=== PATIENT | male | born 1955 | race Caucasian/White ===

== ENCOUNTER 2019-08-13 13:21 | Emergency (ER) | payer OTHER ==
[~2019-08-13] VITALS: Ht 182.9 cm; Wt 106.6 kg
[2019-08-13] MEDS ORDERED: GLIMEPIRIDE1 MG PO (13:43)
[2019-08-13] MEDS ORDERED: OZEMPIC0.25 MG/0. SQ (13:43)
[2019-08-13] MEDS ORDERED: OMEPRAZOLE 20 M20 M1 PO (13:43)
[2019-08-13] MEDS ORDERED: LISINOPRIL2.5 MG PO (13:43)
[2019-08-13] MEDS ORDERED: KEFLEX500 M1 PO (16:00)
[2019-08-13 16:17] VITALS: BP 169/76
== END 2019-08-13 16:18 | disposition home or self-care (01) ==
LOC: ER 13:21
DX: L02.211 Cutaneous abscess of abdominal wall (principal); I10 Essential (primary) hypertension; K21.9 Gastro-esophageal reflux disease without esophagitis

== ENCOUNTER → 2020-08-03 | Outpatient (CLI) | payer OTHER ==
[~2020-08-03] MED LIST: GLIMEPIRIDE1 MG PO; KEFLEX500 M1 PO; LISINOPRIL2.5 MG PO; OMEPRAZOLE 20 M20 M1 PO; OZEMPIC0.25 MG/0. SQ
== END ==
LOC: CAT 12:05
PROVIDERS: ATTEND Internal Medicine Cardiovascular Disease
DX: Z13.6 Encounter for screening for cardiovascular disorders (principal); I25.10 Atherosclerotic heart disease of native coronary artery without angina pectoris; E78.00 Pure hypercholesterolemia, unspecified

== ENCOUNTER → 2020-08-03 | Outpatient (CLI) | payer OTHER | LOC: SJCVC 16:13 | PROVIDERS: ATTEND Internal Medicine Cardiovascular Disease | DX: I45.10 Unspecified right bundle-branch block (principal); R94.31 Abnormal electrocardiogram [ECG] [EKG]; R00.0 Tachycardia, unspecified; E78.00 Pure hypercholesterolemia, unspecified; I10 Essential (primary) hypertension; E78.1 Pure hyperglyceridemia; E11.65 Type 2 diabetes mellitus with hyperglycemia; Z79.899 Other long term (current) drug therapy; Z82.49 Family history of ischemic heart disease and other diseases of the circulatory system ==

== ENCOUNTER → 2020-11-16 | Outpatient (CLI) | payer OTHER | LOC: SJCVCIMAG 10-18 11:30 | PROVIDERS: ATTEND Internal Medicine Cardiovascular Disease | DX: I65.23 Occlusion and stenosis of bilateral carotid arteries (principal); E04.2 Nontoxic multinodular goiter; R00.0 Tachycardia, unspecified; I45.10 Unspecified right bundle-branch block; I44.4 Left anterior fascicular block; I49.3 Ventricular premature depolarization; R94.31 Abnormal electrocardiogram [ECG] [EKG]; Z79.899 Other long term (current) drug therapy ==

== ENCOUNTER → 2020-12-01 | Outpatient (CLI) | payer OTHER ==
--- NOTE | 2020-12-04 18:06 | PATH ---
[facility] [address] [place] [address] PATHOLOGY RPT PROCEDURE Name: FELICE NELSON Room #: [facility].#: [id number] Admission: 12/01/20 Date of : 51 Discharge: Report #: [id number] Path Case #: [id number] Note [facility] Accession Number: [id number] TESTS RESULT FLAG UNITS REF RANGE LAB Clinician Provided Cytology Information No. of containers..01 Other (Miscellaneous) Source: LT INFERIOR THYROID DIAGNOSIS: 02 LEFT INFERIOR THYROID, FINE NEEDLE ASPIRATION NEGATIVE FOR MALIGNANT EPITHELIAL CELLS. BETHESDA CATEGORY II. SPECIMEN CONSISTS OF GROUPS OF FOLLICULAR CELLS, HEMOSIDERIN-LADEN MACROPHAGES, COLLOID, AND BLOOD. 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 COLLOID IS PRESENT. SCANT CELLULAR ELEMENTS, RED BLOOD CELLS ARE PRESENT. THIS INTERPRETATION INCLUDES EVALUATION OF A CELL BLOCK. NEGATIVE FOR NUCLEAR FEATURES OF PAPILLARY THYROID CARCINOMA. Comment: Please note sample may not be entirely payable representative; correlate clinically and follow-up as indicated. Pathologist ICD10: 02 E04.1 Signed out by: Karine Douglas MD, Pathologist NPI- [id number] Performed by: Natali Jj, Director Of Dementia Operations ([facility]) Gross description: 01 30ML, CLEAR RED, 3FX 3 AD /LCS 12/01/2020 1756 Local FLAG LEGEND: L-Low Normal,H-High Normal,LL-Alert Low,HH-Alert High <-Panic Low,>-Panic High,A-Abnormal,AA-Critical Abnormal Performed at: 01 [facility] [address] [place] [address] [address] [place] [address] Rolando Guthrie MD, [address] [address] Karine Douglas MD, Specimen Comment: A courtesy copy of this report has been sent to [phone] Specimen Comment: [id number] [address] [address] PATHOLOGY RPT PROCEDURE Name: FELICE NELSON Lizbet Room #: REG [facility] Means#: [id number] Admission: 12/01/20 Date of : 51 Discharge: Report #: [id number] Path Case #: [id number] Specimen Comment: Report sent to Performed at: 01 [facility] [address], [place], [place] [id number] MD Rolando Guthrie MD Phone: [phone]
== END | disposition home or self-care (01) ==
LOC: ULTRA 09:58
PROVIDERS: ATTEND Family Medicine
DX: E04.1 Nontoxic single thyroid nodule (principal); I10 Essential (primary) hypertension; K21.9 Gastro-esophageal reflux disease without esophagitis; Z98.890 Other specified postprocedural states; Z79.899 Other long term (current) drug therapy